=== PATIENT | male | born 1990 | race Hispanic/Latino ===

== ENCOUNTER 2021-09-08 15:12 | Emergency (ER) | payer SELFPAY ==
[2021-09-08] MEDS ORDERED: Morphine 4 MG/ML VIAL ONE (15:41)
[2021-09-08] MEDS ORDERED: Iopamidol 300 61% 100 ML VIAL FS ONE (15:42)
[2021-09-08 16:10] LABS: Hemoglobin 13.9 g/dL (13.5-17.5); MDiff Complete? YES; Mean Corpuscular HGB CONC 34.9 g/dL (32.0-36.0); Mean Corpuscular Hemoglobin 27.7 pg (27.0-33.0); Mean Corpuscular Volume 79.4 fl (81.2-95.1); Mean Platelet Volume 9.7 fl (7.4-10.4); Platelet Count 278 10x3/uL (150-450); RBC Distribution Width 13.4 % (11.5-14.5); Red Blood Cell (RBC) Count 5.01 10x6/uL (4.32-5.72); White Blood Cell (WBC) Count 8.3 10x3/uL (3.5-10.5)
[2021-09-08 16:16] LABS: ALT (SGPT) 29 U/L (8-55); AST (SGOT) 31 U/L (5-34); Albumin 4.3 g/dL (3.5-5.0); Alkaline Phosphatase 63 U/L (40-110); Anion Gap 19 mmol/L (10-20); BUN (Urea Nitrogen) 16 mg/dL (8.9-20.6); Bilirubin, Total 0.4 mg/dL (0.2-1.2); Calc. Creatinine Clearance 0 mL/min (70-130); Calcium 9.5 mg/dL (7.8-10.44); Carbon Dioxide 20 mmol/L (22-29); Chloride 104 mmol/L (98-107); Globulin 4.2 g/dL (2.4-3.5); Glucose 119 mg/dL (70-105); Potassium 3.7 mmol/L (3.5-5.1); Protein, Total 8.5 g/dL (6.0-8.3); Sodium 139 mmol/L (136-145)
[2021-09-08 16:37] LABS: Lymphocytes 56 % (21-51); Monocytes 3 % (0-10)
[2021-09-08 16:39] LABS: Eosinophils 3 % (0-10); Neutrophil 38 % (42-75); Platelet Morphology Comment Appears Adequate
[2021-09-08] MEDS ORDERED: Lidocaine 1% (PF) 30 ML VIAL ONE (17:27)
== END 2021-09-08 19:00 | disposition home or self-care (01) ==
LOC: CSHERS 15:12
DX: S52.501A Unspecified fracture of the lower end of right radius, initial encounter for closed fracture (principal); S61.101A Unspecified open wound of right thumb with damage to nail, initial encounter; W11.XXXA Fall on and from ladder, initial encounter
CPT/HCPCS: 25605; 71260; 80053; 85025; 94760; 96374; J2001; J2270; Q9967